=== PATIENT | male | born 1975 | race African-American/Black ===

== ENCOUNTER 2016-11-13 19:30 | Emergency (ER) | payer BC, OTHER ==
[2016-11-13 20:17] VITALS: BP 149/89; PULSE 68; TEMP 98.4; BMI 27.6
--- NOTE | 2016-11-13 20:48 | PDOC ---
History of Present Illness - General History Source: Patient <Jet Alfaro - Last Filed: 11/13/16 20:55> - General History Source: Patient Exam Limitations: No Limitations - History of Present Illness Initial Comments: 11/13/16 21:01 The patient is a 41-year-old male, with a significant past medical history of acid reflux, who presents to the ED with subjective fever, nausea, vomiting, diarrhea, and abdominal pain for the past week and a half. The patient denies any recent changes in his diet but does report that he eats a good amount of fatty foods. The pt is also lactose intolerant but has not consumed any dairy recently. He describes the abdominal pain as intermittent, pressure-like in sensation, 5/10 in severity, with no radiation. He states that the pain comes on right before he has to go to the bathroom. He denies any recent travel or sick contacts. The patient denies any blood in stool or vomit. He denies any chest pain or shortness of breath. Surgical Hx: Left Achilles tendon repair <Taylor Nicholson - Last Filed: 11/13/16 21:12> - General Chief Complaint: Nausea/Vomiting Stated Complaint: COLD SYMPTOMS Time Seen by Provider: 11/13/16 20:47 Past History - Past Medical History Other medical history: denies - Immunization History Immunization Up to Date: Yes - Psycho/Social/Smoking Cessation Hx Anxiety: No Suicidal Ideation: No Smoking History: Never smoked Have you smoked in the past 12 months: No Information on smoking cessation initiated: No Hx Alcohol Use: Yes (socially) Drug/Substance Use Hx: No <Jet Alfaro - Last Filed: 11/13/16 20:55> <Taylor Nicholson - Last Filed: 11/13/16 21:12> - Past Medical History Allergies/Adverse Reactions: Allergies Allergy/AdvReac Type Severity Reaction Status Date / Time No Known Allergies Allergy Verified 11/13/16 20:17 Home Medications: Ambulatory Orders Ibuprofen [Motrin -] 600 mg PO TID PRN #90 tablet 02/12/14 Pantoprazole Sodium [Protonix] 40 mg PO DAILY #30 tablet. 11/13/16 Review of Systems - Review of Systems Able to Perform ROS?: Yes Comments:: 11/13/16 21:09 CONSTITUTIONAL: Present: subjective fevers Absent: chills, diaphoresis, generalized weakness, malaise, loss of appetite HEENT: Absent: rhinorrhea, nasal congestion, throat pain, throat swelling, difficulty swallowing, mouth swelling, ear pain, eye pain, visual Changes CARDIOVASCULAR: Absent: chest pain, syncope, palpitations, irregular heart rate, lightheadedness , peripheral edema RESPIRATORY: Absent: cough, shortness of breath, dyspnea with exertion, orthopnea, wheezing, stridor, hemoptysis GASTROINTESTINAL: Present: abdominal pain, nausea, vomiting Absent: abdominal distension, diarrhea, constipation, melena, hematochezia GENITOURINARY: Absent: dysuria, frequency, urgency, hesitancy, hematuria, flank pain, genital pain MUSCULOSKELETAL: Absent: myalgia, arthralgia, joint swelling SKIN: Absent: rash, itching, pallor HEMATOLOGIC/IMMUNOLOGIC: Absent: easy bleeding, easy bruising, lymphadenopathy, frequent infections ENDOCRINE: Absent: unexplained weight gain, unexplained weight loss, heat intolerance, cold intolerance NEUROLOGIC: Absent: headache, focal weakness or paresthesias, dizziness, unsteady gait, seizure, mental status changes, bladder or bowel incontinence PSYCHIATRIC: Absent: anxiety, depression, suicidal or homicidal ideation, hallucinations. <Taylor Nicholson - Last Filed: 11/13/16 21:12> *Physical Exam - Vital Signs Last Vital Signs Temp Pulse Resp BP Pulse Ox 98.4 F 68 16 149/89 99 11/13/16 20:14 11/13/16 20:14 11/13/16 20:14 11/13/16 20:14 11/13/16 20:14 <Jet Alfaro - Last Filed: 11/13/16 20:55> - Vital Signs Last Vital Signs Temp Pulse Resp BP Pulse Ox 98.4 F 68 16 149/89 99 11/13/16 20:14 11/13/16 20:14 11/13/16 20:14 11/13/16 20:14 11/13/16 20:14 - Physical Exam Comments: 11/13/16 21:11 GENERAL: Well developed, well nourished. Awake and alert. No acute distress. HEENT: Normocephalic, atraumatic. PERRLA, EOMI. No conjunctival pallor. Sclera are non- icteric. Moist mucous membranes. Oropharynx is clear. NECK: Supple. Full ROM. No JVD. Carotid pulses 2+ and symmetric, without bruits. No thyromegaly. No lymphadenopathy. CARDIOVASCULAR: Regular rate and rhythm. No murmurs, rubs, or gallops. Distal pulses are 2+ and symmetric. PULMONARY: No evidence of respiratory distress. Lungs clear to auscultation bilaterally. No wheezing, rales or rhonchi. ABDOMINAL: Soft. Non-tender. Non-distended. No rebound or guarding. No organomegaly. Normoactive bowel sounds. MUSCULOSKELETAL Normal range of motion at all joints. No bony deformities or tenderness. No CVA tenderness. EXTREMITIES: No cyanosis. No clubbing. No edema. No calf tenderness. SKIN: Warm and dry. Normal capillary refill. No rashes. No jaundice. NEUROLOGICAL: Alert, awake, appropriate. PSYCHIATRIC: Cooperative. Good eye contact. Appropriate mood and affect. <Taylor Nicholson - Last Filed: 11/13/16 21:12> Medical Decision Making - Medical Decision Making 11/13/16 20:59 Dr. Alfaro: The scribe's documentation has been prepared under my direction and personally reviewed by me in its entirery. I confirm that the note above accurately reflects all work, treatment, procedures, and medical decision making performed by me. <Jet Alfaro - Last Filed: 11/13/16 20:55> *DC/Admit/Observation/Transfer - Discharge Dispostion Admit: No <Jet Alfaro - Last Filed: 11/13/16 20:55> - Attestations Scribe Attestion: 11/13/16 21:12 Documentation prepared by Taylor Nicholson, acting as lpn or medical assistant for Jet Alfaro MD. <Taylor Nicholson - Last Filed: 11/13/16 21:12> Diagnosis at time of Disposition: Abdominal pain Qualifiers: Abdominal location: epigastric Qualified Code(s): R10.13 - Epigastric pain GERD (gastroesophageal reflux disease) Qualifiers: Esophagitis presence: esophagitis presence not specified Qualified Code(s): K21.9 - Gastro-esophageal reflux disease without esophagitis - Discharge Dispostion Disposition: HOME Condition at time of disposition: Stable - Prescriptions Prescriptions: Pantoprazole Sodium [Protonix] 40 mg PO DAILY #30 tablet.dr - Referrals Referrals: Gary Roper MD [Staff Physician] - Ronal Haines MD [Staff Physician] - - Patient Instructions Printed Discharge Instructions: DI for Abdominal Pain-Adult, GERD Diet, DI for Gastroesophageal Reflux Disease (GERD) Additional Instructions: Please follow up with your doctor or the doctors referred to you if symptoms become worse for eventual endoscopy. Take medication when you needed it. Avoid excessive greasy foods. avoid excessive alcohol or smoking.
== END 2016-11-13 21:15 | disposition home or self-care (01) ==
LOC: JER 19:30
DX: K21.9 Gastro-esophageal reflux disease without esophagitis (principal); R10.13 Epigastric pain
CPT/HCPCS: 99282-25

== ENCOUNTER 2017-02-24 14:42 | Emergency (ER) | payer BC, OTHER ==
[2017-02-24 14:59] VITALS: PULSE 64; TEMP 98.8; BMI 28.0
--- NOTE | 2017-02-24 15:01 | PDOC ---
Rapid Medical Evaluation Chief Complaint: Cold Symptoms Time Seen by Provider: 02/24/17 14:55 Medical Evaluation: Allergies Allergy/AdvReac Type Severity Reaction Status Date / Time No Known Allergies Allergy Verified 02/24/17 14:54 02/24/17 14:55 I have performed a brief in-person evaluation of this patient. The patient presents with a chief complaint of: URI sxs. H/o "borderline HTN", not on meds Pertinent physical exam findings:Hypertensive, otherwise stable I have ordered the following:nothing The patient will proceed to the ED for further evaluation.
--- NOTE | 2017-02-24 16:19 | PDOC ---
History of Present Illness - General Chief Complaint: Cold Symptoms Stated Complaint: Sore Throat/FEVER Time Seen by Provider: 02/24/17 14:55 - History of Present Illness Initial Comments: 02/24/17 16:14 41yo man with no significant PMH who presents with 1 week of sore throat then developed dry cough. For the past 3 days had subjective fevers, generalized myalgia and weakness. No rhinorrhea, wheezing, CP, nausea, vomiting. No recent travel or sick contacts. PSx: L tendon rupture repair Social: Never smoker, social drinker, no drugs. Past History - Travel Traveled outside of the country in the last 30 days: No Close contact w/someone who was outside of country & ill: No - Past Medical History Allergies/Adverse Reactions: Allergies Allergy/AdvReac Type Severity Reaction Status Date / Time No Known Allergies Allergy Verified 02/24/17 14:54 Home Medications: Ambulatory Orders Amlodipine Besylate [Norvasc -] 5 mg PO DAILY #30 tablet 02/24/17 Azithromycin 250 mg PO DAILY #4 tablet 02/24/17 COPD: No HTN: Yes (border line) - Immunization History Immunization Up to Date: Yes - Suicide/Smoking/Psychosocial Hx Smoking History: Never smoked Have you smoked in the past 12 months: No Information on smoking cessation initiated: No Hx Alcohol Use: Yes (socially) Drug/Substance Use Hx: No Substance Use Type: None Review of Systems - Review of Systems Able to Perform ROS?: Yes Constitutional: Yes: Fever, Malaise HEENTM: Yes: Symptoms Reported Respiratory: Yes: Cough All Other Systems: Reviewed and Negative *Physical Exam - Vital Signs Last Vital Signs Temp Pulse Resp BP Pulse Ox 98.8 F 64 16 160/110 100 02/24/17 14:54 02/24/17 14:54 02/24/17 14:54 02/24/17 14:54 02/24/17 14:54 - Physical Exam General Appearance: Yes: Appropriately Dressed, Apparent Distress HEENT: positive: Pharyngeal Erythema, Tonsillar Erythema. negative: Tonsillar Exudate, Rhinorrhea, Sinus Tenderness Neck: positive: Supple, Lymphadenopathy (R), Lymphadenopathy (L) Respiratory/Chest: positive: Lungs Clear, Normal Breath Sounds Cardiovascular: positive: Regular Rhythm, Regular Rate, S1, S2 Gastrointestinal/Abdominal: positive: Soft. negative: Tender Neurologic: positive: Fully Oriented, Alert Medical Decision Making - Medical Decision Making 02/24/17 16:19 41yo man who presents with s/s suggestive of pharyngitis. Will start patient on a Z pack. He was also found to be hypertensive to 160/110 and on repeat 150/ 100. Past visits also indicate that his BP has been elevated. Discussed the risks of uncontrolled hypertension and the patient agreed to start treatment with Norvasc 5mg daily. He was instructed to follow-up with Dr. Crespo next week for blood pressure check and continuing management of his blood pressure. Patient agreed with plan, and was discharged home. 02/24/17 17:54 *DC/Admit/Observation/Transfer Diagnosis at time of Disposition: Sore throat, Hypertension - Prescriptions Prescriptions: Amlodipine Besylate [Norvasc -] 5 mg PO DAILY #30 tablet Azithromycin 250 mg PO DAILY #4 tablet - Referrals Referrals: Abraham Crespo MD [Staff Physician] - - Patient Instructions Printed Discharge Instructions: DI for High Blood Pressure, DI for Common Cold Additional Instructions: You have a viral infection. Please take 1 tablet of Azithromycin (an antibiotic ) starting tomorrow every day for the next 4 days. Drink plenty of fluids. You can also take [employer]'s Natural cough syrup for your sore throat and cough. You were also found to have high blood pressure. Please take 1 tablet of Norvasc every day to control your blood pressure. Make an appointment with Dr. Crespo in the next week to check your blood pressure and discuss further management. Please return to the Emergency Department if you have new, worsening, or concerning symptoms. - Post Discharge Activity
[2017-02-24] MEDS ORDERED: amLODIPine BESYLATE 5 MG TABLET (FP) PO ONE (17:24)
[2017-02-24] MEDS ORDERED: AZITHROMYCIN 500 MG TABLET PO ONE (17:25)
[2017-02-24] MEDS ORDERED: amLODIPine BESYLATE 5 MG TABLET (FP) ONE (17:32)
[2017-02-24] MEDS ORDERED: AZITHROMYCIN 250 MG TABLET ONE (17:32)
--- NOTE | 2017-02-24 17:33 | PDOC ---
Attending Attestation - Resident Resident Name: Jennifer Morales - ED Attending Attestation I have performed the following: I have examined & evaluated the patient, The case was reviewed & discussed with the resident, I agree w/resident's findings & plan, Exceptions are as noted - HPI HPI: 02/24/17 17:28 THIS 41 YO MALE P/W sore throat,nasal congestion and cough. He is breathing easily ,no resp distress. no "hot potato voice" - Physicial Exam PE: 02/24/17 17:33 wnwd 41 yo male in no distress head nontraumatic neck no lymphadenapathy ,supple throat-no exudates,uvula midline lungs cta b/lk cvs [id number] abd soft,nontender extremities no rashes neuro axox3,no gross focal deficits + - Medical Decision Making 02/25/17 00:39 IMP viral syndrome, discharged home
[2017-02-24 17:46] VITALS: BP 158/108
== END 2017-02-24 17:47 | disposition home or self-care (01) ==
LOC: JER 14:42
DX: J02.9 Acute pharyngitis, unspecified (principal); I10 Essential (primary) hypertension
CPT/HCPCS: 99281-25